=== PATIENT | male | born 1960 | race Caucasian/White ===

== ENCOUNTER 2016-07-05 12:15 | Day surgery (SDC) | payer OTHER ==
[~2016-07-05] VITALS: Ht 175.3 cm; Wt 72.6 kg
[~2016-07-05 12:15] MED LIST: 0.9% Sodium Chloride 1,000 ML IV SCH; ACET325T51 PO; Sodium Chloride LOK Flush 10 mL Syringe IV PRN; fentaNYL-PF 50 mCg/mL 2 mL Inj IVPUSH PRN
[2016-07-05 12:35] VITALS: BP 139/93; PULSE 58; RESP 16; O2SAT 97
--- NOTE | 2016-07-05 13:29 | PCM.ENDCOL ---
Colonoscopy Date of Service: July 05, 2016 Physician Riley Hunt MD Pre Procedure Diagnosis: Screening and history of polyp Post Procedure Dx & Findings: Polyp hemorrhoids diverticula Procedure Colonoscopy PROCEDURE IN DETAIL: Prep adequate Withdrawal time 16 minutes After unremarkable rectal examination the Olympus video colonoscope was inserted patient's anal canal and was advanced to cecum. Landmarks were identified including the ileocecal valve and appendiceal orifice. Scope was withdrawn systematically. Visualized colonic mucosa showed healthy shiny mucosa with normal healthy-appearing vasculature. In the ascending colon, there was a 3 mm polyp which was removed completely using cold snare. In the transverse colon, there was a 2 mm polyp which was removed completely using cold snare. In the descending colon, was a 1 mm polyp which was removed completely using cold forceps. In the sigmoid colon, there was a centimeter polyp which was removed completely using hot snare. In the sigmoid colon, there are several medium-sized diverticuli. In the rectum retroflexion was done which showed hemorrhoids. Anal canal was inspected carefully on the way out and hemorrhoids noted. Impression Polyp 4 status post complete removal. One polyp was a centimeter in size Diverticuli Hemorrhoids Recommendation Repeat colonoscopy 3 years Diverticular diet Presedation Assessment Risks and Benefits Informed consent was obtained from the patient after all risks and benefits including but not limited to drug reaction, infection, pain, bleeding, perforation, as well as alternatives were discussed. Patient monitoring Continuous pulse oximetry, cardiac monitoring, blood pressure monitoring, IV access, and oxygen at 2L per nasal cannula. Periprocedural Fentanyl: Fentanyl 75mcg Incrementally Midazolam: Midazolam 3mg Incrementally Complications There were no periprocedural complications identified. Post Procedure Plan Post Procedure Recommendations 1. Restrict activities today. 2. Resume normal activities in the morning. 3. Resume medications. 4. Patient informed of normal post procedure side effects as bloating, drowsiness, blood streaking in the stool. 5. average risk CRCS. If colon polyps come back as: -Hyperplastic- can repeat colonoscopy in 10 years -Tubular adenoma- repeat colonoscopy in 5 years -Tubulovillous/villous adenoma- repeat colonoscopy in 3 years -If any dysplasia- return to clinic as soon as possible 6. Please don't hesitate to call me with any questions. Riley Hunt MD July 05, 2016 13:29
[2016-07-05 13:32] VITALS: BP 142/89; PULSE 68; RESP 16; O2SAT 97
[2016-07-05 13:50] VITALS: BP 130/80; PULSE 60; RESP 16; O2SAT 99
--- NOTE | 2016-07-07 11:46 | PATH ---
SURGICAL PATHOLOGY Attending Physician:Riley Hunt M.D. CASE STATUS: Signed Out PATIENT NAME: MILEY DANIEL PID: [id number] : 1960 DATE COLLECTED:07/05/2016 00:00 SPECIMEN: 1: Colon, Biopsy 2: Colon, Biopsy 3: Colon, Biopsy 4: Colon, Biopsy CLINICAL HISTORY: 1. ASCENDING COLON POLYP 2. TRANSVERSE COLON POLYP 3. DESCENDING COLON POLYP 4. SIGMOID COLON POLYP FINAL DIAGNOSIS: 1.ASCENDING COLON POLYP: TUBULAR ADENOMA. 2.TRANSVERSE COLON POLYP: BENIGN COLONIC MUCOSA CONSISTENT WITH POLYPOID REDUNDANCY. Negative for dysplasia and malignancy. 3.DESCENDING COLON POLYP: TUBULAR ADENOMA. 4.SIGMOID COLON POLYP: TUBULAR ADENOMA. ICD10 CODE D12.2 D12.4 D12.5 GROSS DESCRIPTION: The specimen is received in four formalin filled containers labeled with the patient's name. 1). The specimen is sublabeled "ascending colon polyp" and consists of 3 portions of tissue which aggregate to 0.3 x 0.3 x 0.3 CM. The specimen is entirely submitted in cassette 1A. 2). The specimen is sublabeled "transverse colon polyp" and consists of 2 portions of tissue which aggregate to 0.2 x 0.2 x 0.2 CM. The specimen is entirely submitted in cassette 2A. 3). The specimen is sublabeled "descending colon polyp" and consists of a 0.3 x 0.3 x 0.3 CM portion of tissue which is entirely submitted in cassette 3A. 4). The specimen is sublabeled "sigmoid colon polyp" and consists of a 0.4 x 0.4 x 0.4 CM portion of tissue which is entirely submitted in cassette 4A. 07/06/2016 [facility] MICRO DESCRIPTION: See diagnosis. ICD-9 CODES: CPT CODES: 1: 66891 2: 12873 3: 17618 4: 97972 Electronically Signed Out Anayeli Vivar MD [facility] [address], [place] [address] Technical component performed at [facility], [address], [place], [address]
== END 2016-07-05 23:59 | disposition home or self-care (01) ==
LOC: END 12:15
PROVIDERS: ATTEND Internal Medicine
DX: Z12.11 Encounter for screening for malignant neoplasm of colon (principal); D12.2 Benign neoplasm of ascending colon; D12.4 Benign neoplasm of descending colon; D12.5 Benign neoplasm of sigmoid colon; K63.5 Polyp of colon; K57.30 Diverticulosis of large intestine without perforation or abscess without bleeding; K64.8 Other hemorrhoids; Z86.010 Personal history of colon polyps; F41.9 Anxiety disorder, unspecified; I10 Essential (primary) hypertension; E78.5 Hyperlipidemia, unspecified; K58.9 Irritable bowel syndrome, unspecified
CPT/HCPCS: 45385; 88305; 99153; G0500; J7030